=== PATIENT | male | born 1990 | race African-American/Black ===

== ENCOUNTER 2019-01-25 09:15 | Emergency (ER) | payer MEDICAID, OTHER ==
[~2019-01-25] VITALS: Ht 182.9 cm; Wt 91.0 kg
[2019-01-25] MEDS ORDERED: ALBUTEROL (0.083%) 2.5MG/3ML NEB HHN STA (11:06)
[2019-01-25] MEDS ORDERED: IPRATROPIUM BROMIDE (0.02%) 0.5MG/2.5ML NEB HHN STA (11:06)
[2019-01-25] MEDS ORDERED: METHYLPREDNISOLONE SOD SUCC 125 MG/2 ML VIAL IM STA (11:06)
[2019-01-25 12:49] VITALS: BP 115/62
== END 2019-01-25 13:02 | disposition home or self-care (01) ==
LOC: ER 09:15
DX: J45.901 Unspecified asthma with (acute) exacerbation (principal); F17.210 Nicotine dependence, cigarettes, uncomplicated; F12.90 Cannabis use, unspecified, uncomplicated
CPT/HCPCS: 94640; 96372; 99283; J2930; J7611

== ENCOUNTER 2020-08-05 08:12 | Emergency (ER) | payer MEDICAID ==
[~2020-08-05] VITALS: Ht 182.9 cm; Wt 91.0 kg
[2020-08-05] MEDS ORDERED: IPRATROPIUM BROMIDE (0.02%) 0.5MG/2.5ML NEB HHN STA (08:36)
[2020-08-05] MEDS ORDERED: METHYLPREDNISOLONE SOD SUCC 125 MG/2 ML VIAL IV STA (08:36)
[2020-08-05] MEDS ORDERED: ALBUTEROL (0.083%) 2.5MG/3ML NEB HHN STA (08:36)
[2020-08-05] MEDS ORDERED: KETOROLAC 30MG/ML VIAL IV ONE (10:45)
[2020-08-05] MEDS ORDERED: METOCLOPRAMIDE HCL 10MG/2ML VIAL IV ONE (10:45)
[2020-08-05 11:40] VITALS: BP 142/88
== END 2020-08-05 12:30 | disposition home or self-care (01) ==
LOC: ER 08:12
DX: J45.901 Unspecified asthma with (acute) exacerbation (principal); R03.0 Elevated blood-pressure reading, without diagnosis of hypertension; F17.200 Nicotine dependence, unspecified, uncomplicated
CPT/HCPCS: 71045; 93005; 94644; 96374; 96375; 99285; J1885; J2765; J2930; Z7610

== ENCOUNTER 2021-09-13 22:16 | Emergency (ER) | payer MEDICAID ==
[~2021-09-13] VITALS: Ht 182.9 cm; Wt 109.0 kg
[2021-09-13] MEDS ORDERED: KETOROLAC 60MG/2ML VIAL IM ONE (22:45)
[2021-09-14] MEDS ORDERED: HYDROCODONE/ACETAMINOPHEN 5/325MG TABLET PO STA (01:32)
[2021-09-14] MEDS ORDERED: KETOROLAC 60MG/2ML VIAL IM STA (01:32)
[2021-09-14] MEDS ORDERED: NAPR-681 PO ×2 (02:20→03:39)
[2021-09-14 03:26] LABS: CLARITY URINE CLEAR (CLEAR); COLOR URINE YELLOW (YELLOW); KETONES URINE TRACE (NEGATIVE); LEUKOCYTE ESTERASE URINE NEGATIVE (NEGATIVE); NITRITE URINE NEGATIVE (NEGATIVE); OCCULT BLOOD URINE NEGATIVE (NEGATIVE); PROTEIN URINE NEGATIVE (NEGATIVE); SPECIFIC GRAVITY URINE 1.037 (1.005-1.030); UROBILINOGEN URINE 0.2 E.U./dL (0.2-1.0)
[2021-09-14] MEDS ORDERED: TRAM50TA PO (03:39)
[2021-09-14 03:56] VITALS: BP 126/80
== END 2021-09-14 03:57 | disposition home or self-care (01) ==
LOC: ER 22:16
DX: M54.50 Low back pain, unspecified (principal)
CPT/HCPCS: 81003; 96372; 99283; J1885

== ENCOUNTER 2022-02-13 09:45 | Emergency (ER) | payer MEDICAID ==
[~2022-02-13] VITALS: Ht 182.9 cm; Wt 93.0 kg
[~2022-02-13 09:45] MED LIST: NAPR-681 PO; TRAM50TA PO
[2022-02-13] MEDS ORDERED: IPRATROPIUM BROMIDE (0.02%) 0.5MG/2.5ML NEB HHN STA (10:54)
[2022-02-13] MEDS ORDERED: PREDNISONE 20MG TABLET PO STA (10:54)
[2022-02-13 11:13] LABS: BASOPHILS % 0.2 % (0.0-2.0); HEMOGLOBIN. 17.3 g/dL (14.0-18.0); LYMPHOCYTES % 8.9 % (20.0-50.0); MEAN CORPUSCULAR HEMOGLOBIN 30.1 pg (28.0-32.0); MEAN PLATELET VOLUME 9.3 fl (7.4-10.4); MONOCYTES % 8.6 % (2.0-8.0); NEUTROPHILS % 81.3 % (40.0-76.0); PLATELET 147 x1000/uL (130-400); RED BLOOD CELL COUNT 5.73 mill/uL (4.7-6.1); RED CELL DISTRIBUTION WIDTH 12.9 % (11.6-14.6)
[2022-02-13] MEDS ORDERED: ACETAMINOPHEN 325MG TABLET PO ONE (11:15)
[2022-02-13] MEDS ORDERED: LOPERAMIDE 2MG/15ML UDC PO ONE (11:15)
[2022-02-13 11:16] LABS: CHLORIDE 107 mEq/L (98-107)
[2022-02-13] MEDS ORDERED: IPRATROPIUM BROMIDE (0.02%) 0.5MG/2.5ML NEB ONE (13:02)
[2022-02-13] MEDS: ALBUTEROL (0.083%) 2.5MG/3ML NEB HHN SCH ×3 (13:07→14:00)
[2022-02-13] MEDS ORDERED: ALBUTEROL (0.5%) 2.5MG/0.5ML NEB HHN ONE (13:36)
[2022-02-13] MEDS ORDERED: ALBUTEROL (0.083%) 2.5MG/3ML NEB ONE (13:37)
[2022-02-13] MEDS ORDERED: ALBU6.7H9 INH (14:05)
[2022-02-13 14:50] VITALS: BP 135/82
== END 2022-02-13 14:52 | disposition home or self-care (01) ==
LOC: ER 09:45
DX: R06.02 Shortness of breath (principal); J45.909 Unspecified asthma, uncomplicated
CPT/HCPCS: 36415; 71045; 80053; 83880; 84484; 85025; 93005; 94640; 99285; J7512; Z7610

== ENCOUNTER 2023-08-26 14:10 | Emergency (ER) | payer MEDICAID ==
[~2023-08-26] VITALS: Ht 180.3 cm; Wt 107.0 kg
[~2023-08-26 14:10] MED LIST changes: +ALBU6.7H3 INH
[2023-08-26 14:30] VITALS: PULSE 84; RESP 22; O2SAT 99
[2023-08-26] MEDS ORDERED: IPRATROPIUM/ALBUTEROL 0.5-3(2.5)MG/3ML NEB HHN ONE (14:30)
[2023-08-26] MEDS ORDERED: METHYLPREDNISOLONE SOD SUCC 125MG/2ML (ACT-O-VIAL) IV ONE (14:30)
[2023-08-26 14:47] LABS: BASOPHILS % 0.9 % (0.0-2.0); EOSINOPHILS % 7.7 % (0.0-5.0); HEMATOCRIT. 46.5 % (42.0-52.0); HEMOGLOBIN. 16.2 g/dL (14.0-18.0); LYMPHOCYTES % 32.6 % (20.0-50.0); MEAN CORPUSCULAR HEMOGLOBIN 30.8 pg (28.0-32.0); MEAN CORPUSCULAR HGB CONC 34.9 g/dL (31.0-37.0); MEAN CORPUSCULAR VOLUME 88.2 fL (80.0-94.0); MEAN PLATELET VOLUME 9.2 fl (7.4-10.4); NEUTROPHILS % 47.8 % (40.0-76.0); PLATELET 153 x1000/uL (130-400); RED BLOOD CELL COUNT 5.27 mill/uL (4.7-6.1); RED CELL DISTRIBUTION WIDTH 12.9 % (11.6-14.6); WHITE BLOOD COUNT 4.8 x1000/uL (4.5-11.0)
[2023-08-26 14:59] VITALS: BP 147/89; TEMP 98.2
[2023-08-26 15:13] VITALS: PULSE 88; RESP 18; O2SAT 100
[2023-08-26] MEDS ORDERED: IPRATROPIUM BROMIDE (0.02%) 0.5MG/2.5ML NEB HHN STA (15:13)
[2023-08-26] MEDS ORDERED: ALBUTEROL (0.083%) 2.5MG/3ML NEB HHN STA (15:13)
[2023-08-26 15:26] LABS: BG BASE EXCESS -0.2 mmol/L (-2.0-2.0); BG CARBOXYHEMOGLOBIN 0.4 % (0.5-1.5); BG DEOXYHEMOGLOBIN 4.4 % (0.0-5.0); BG FRACTION INSPIRED OXYGEN 21; BG METHEMOGLOBIN 0.2 % (0.0-1.5); BG OXYGEN SATURATION 95.6 % (92.0-98.5); BG PCO2 37.8 mmHg (35.0-45.0); BG PO2 76.9 mmHg (75.0-100.0); BG SAMPLE SITE LEFT RADIAL; BG TOTAL HEMOGLOBIN 16.5 g/dL (12.0-18.0); BG VENT MODE ROOM AIR
[2023-08-26 15:29] LABS: CHLORIDE 109 mEq/L (98-107); INDEX HEMOLYSI 1 (1-3); INDEX ICTERIC 1 (1-4); INDEX LIPEMIC 1 (1-3); POTASSIUM 3.5 mEq/L (3.5-5.1); SODIUM 140 mEq/L (136-145)
[2023-08-26] MEDS ORDERED: IPRATROPIUM/ALBUTEROL 0.5-3(2.5)MG/3ML NEB NEB PRN (16:45)
[2023-08-26] MEDS ORDERED: DOCUSATE SODIUM 100MG CAPSULE PO PRN (16:45)
[2023-08-26] MEDS ORDERED: ONDANSETRON HCL 4MG/2ML INJ IV PRN (16:45)
[2023-08-26] MEDS ORDERED: GUAIFENESIN 200MG/10ML SUGAR FREE UDC PO PRN (16:45)
[2023-08-26] MEDS ORDERED: IPRATROPIUM/ALBUTEROL 0.5-3(2.5)MG/3ML NEB HHN SCH (16:45)
[2023-08-26] MEDS ORDERED: CLONIDINE 0.1MG TABLET PO PRN (16:45)
[2023-08-26] MEDS ORDERED: NITROGLYCERIN 0.4MG TABLET SL SL PRN (16:45)
[2023-08-26] MEDS ORDERED: ENOXAPARIN 40MG/0.4ML SYR SUBCUT SCH (16:45)
[2023-08-26] MEDS ORDERED: ACETAMINOPHEN 325MG TABLET PO PRN ×2 (16:45)
[2023-08-26] MEDS ORDERED: MAGNESIUM/ALUMINUM HYDROXIDE/SIMETHICONE 30ML UDC PO PRN (16:45)
[2023-08-26] MEDS ORDERED: KETOROLAC 15MG/ML VIAL IV PRN (17:00)
[2023-08-26 17:59] LABS: CARBON DIOXIDE 24 mEq/L (21-32)
[2023-08-26 18:01] LABS: ETHANOL BLOOD < 10 mg/dL (<10); T4 FREE 1.07 ng/dL (0.76-1.46)
[2023-08-26 18:45] LABS: CALCIUM 9.1 mg/dL (8.5-10.1); CREATININE 0.9 mg/dL (0.6-1.3); GLUCOSE 85 mg/dL (70-105); UREA NITROGEN BLOOD 10 mg/dL (7-21)
[2023-08-26 18:46] LABS: ALANINE AMINOTRANSFERASE 34 IU/L (13-61); ALBUMIN 4.6 g/dL (3.4-5.0); ASPARTATE AMINOTRANSFERASE 26 IU/L (15-37); PROTEIN TOTAL 8.7 g/dL (6.0-8.3)
[2023-08-26 18:47] LABS: NT PRO B-TYPE NATRIURETIC PEP < 5 pg/mL (5-125); TROPONIN I HIGH SENSITIVITY 4 ng/L (<78)
[2023-08-26] MEDS ORDERED: GUAIFENESIN 600MG ER TABLET PO SCH (21:00)
[2023-08-26] MEDS ORDERED: ZOLPIDEM TARTRATE 5MG TABLET PO PRN (21:00)
[2023-08-26] MEDS ORDERED: FAMOTIDINE 20MG TABLET PO SCH (21:00)
[2023-08-26] MEDS ORDERED: METHYLPREDNISOLONE SOD SUCC 125MG/2ML (ACT-O-VIAL) IV SCH (22:00)
== END 2023-08-26 18:14 | disposition left against medical advice (07) ==
LOC: ER 14:10
DX: J45.901 Unspecified asthma with (acute) exacerbation (principal)
CPT/HCPCS: 80053; 80320; 83036; 83880; 84439; 84443; 85025; 84484; 36415; 71045; 94640; 82805; 82375; 94644; 96374; 99291; 36600; J2930; Z7610 ×6; 36556; G0480

== ENCOUNTER 2025-02-12 10:14 | Emergency (ER) | payer MEDICAID ==
[~2025-02-12] VITALS: Ht 190.5 cm; Wt 110.0 kg
[2025-02-12 10:36] VITALS: O2SAT 98
[2025-02-12] MEDS: PREDNISONE 20MG TABLET PO STA (11:42)
[2025-02-12 12:04] VITALS: PULSE 95; RESP 15
[2025-02-12] MEDS: IPRATROPIUM BROMIDE (0.02%) 0.5MG/2.5ML NEB HHN STA (12:04)
[2025-02-12] MEDS: ALBUTEROL (0.083%) 2.5MG/3ML NEB HHN STA (12:04)
[2025-02-12] MEDS ORDERED: ALBU18HF2 IH (13:52)
[2025-02-12] MEDS ORDERED: P50 MT (13:52)
[2025-02-12] MEDS ORDERED: PROM6.2527 MT (13:53)
[2025-02-12] MEDS: ALBUTEROL (0.083%) 2.5MG/3ML NEB HHN ONE (13:59)
[2025-02-12 14:00] VITALS: PULSE 90; RESP 12
[2025-02-12 14:14] VITALS: BP 118/78; PULSE 92; RESP 14; TEMP 37; O2SAT 97
== END 2025-02-12 14:14 | disposition home or self-care (01) ==
LOC: ER 10:14
DX: J45.901 Unspecified asthma with (acute) exacerbation (principal); Z79.899 Other long term (current) drug therapy
CPT/HCPCS: 71045; 94640; 99283; J7512; Z7610 ×3; 99285